=== PATIENT | female | born 1980 | race Two or more races ===

== ENCOUNTER 2017-04-06 19:48 | Emergency (ER) | payer MEDICARE, MEDICAID ==
[~2017-04-06] VITALS: Ht 152.4 cm; Wt 59.0 kg
[2017-04-06 20:25] VITALS: BP 150/99
== END 2017-04-07 00:22 | disposition left against medical advice (07) ==
LOC: ER 20:30
DX: J02.9 Acute pharyngitis, unspecified (principal); Z53.21 Procedure and treatment not carried out due to patient leaving prior to being seen by health care provider

== ENCOUNTER 2017-05-29 23:03 | Emergency (ER) | payer MEDICARE, MEDICAID ==
[~2017-05-29] VITALS: Ht 154.9 cm; Wt 54.4 kg
[2017-05-29] MEDS ORDERED: ALBUTEROL SULF 2.5 MG/0.5ML(0.5%) NEB SOLN NEB ONE (23:15)
[2017-05-29] MEDS ORDERED: IPRATROPIUM BROM 0.5 MG/2.5ML INH SOL NEB ONE (23:15)
[2017-05-29] MEDS ORDERED: ONDANSETRON ODT 4 MG TAB PO ONE (23:15)
[2017-05-29 23:46] LABS: Basophils # (auto) 0.4 uL; Basophils % (auto) 2.4 % (0.0-2.0); DEFINITIVE SEE PRINTOUT; Eosinophils # (auto) 0.2 uL; Eosinophils % (auto) 1.2 % (0.0-7.0); Lymphocytes # (auto) 0.6 uL; Lymphocytes % (auto) 3.9 % (10.0-50.0); Mean Corpuscular Hemoglobin 24.5 pg (28.0-32.0); Mean Corpuscular Hgb Conc. 31.6 g/dL (32.0-36.0); Mean Corpuscular Volume 77.4 fL (80.0-100.0); Mean Platelet Volume 7.9 fL (7.4-10.4); Monocytes # (auto) 0.1 uL; Monocytes % (auto) 0.6 % (0.0-12.0); Neutrophils % (auto) 91.9 % (37.0-80.0); Platelet Count (auto) 415 10^3/uL (140-450); Red Cell Distribution Width 16.7 % (11.6-16.0); SUSPECT SEE PRINTOUT; White Blood Cell 15.3 10^3/uL (4.4-10.8)
[2017-05-29 23:51] LABS: Albumin 3.8 g/dL (3.4-5.0); Anion Gap 17 (5-15); Aspartate Aminotransferase 64 U/L (15-37); BUN/Creatinine Ratio 12.1; Blood Urea Nitrogen 34 mg/dL (7-18); Calcium 8.8 mg/dL (8.5-10.1); Chloride 113 mmol/L (98-107); GFR African American 24 mL/min; GFR Non-African American 20 mL/min; Glucose 131 mg/dL (74-106); INR 1.12 (0.9-1.15); Partial Thromboplastin Time 40.5 sec (22.64-33.71); Prothrombin Time 12.2 sec (9.37-12.3); Sodium 138 mmol/L (136-145)
[2017-05-29 23:57] LABS: Alkaline Phosphatase 405 U/L (45-117); Bilirubin, Total 2.1 mg/dL (0.2-1.0); Total Protein 8.1 g/dL (6.4-8.2)
[2017-05-30 00:02] LABS: Carbon Dioxide 8 mmol/L (21-32)
[2017-05-30] MEDS ORDERED: ONDANSETRON HCL 4 MG/2 ML VIAL ONE (01:34)
[2017-05-30] MEDS ORDERED: MORPHINE SULFATE 4 MG/ML SYRG IV ONE ×2 (01:45→06:30)
[2017-05-30] MEDS ORDERED: ACETAMINOPHEN 325 MG TAB PO ONE (01:45)
[2017-05-30] MEDS ORDERED: ONDANSETRON HCL 4 MG/2 ML VIAL IV ONE (01:45)
[2017-05-30 02:26] LABS: Lactic Acid w/Reflex 4.2 mmol/L (0.4-2.0)
[2017-05-30 02:28] LABS: REFLEX LACTIC ACID YES OR NO YES
[2017-05-30 02:43] LABS: Urine RBC None Seen /hpf (0 - 4)
[2017-05-30 03:28] LABS: Urine Color Yellow (Yellow); Urine Glucose Normal (Normal); Urine Ketone Negative (Negative); Urine Nitrite Negative (Negative); Urine Urobilinogen Normal (Negative)
[2017-05-30 03:29] LABS: Urine Bilirubin Negative (Negative); Urine Blood 1+ /uL (Negative)
[2017-05-30] MEDS ORDERED: LEVOFLOXACIN 750MG 150 ML IV ONE (04:30)
[2017-05-30] MEDS ORDERED: SODIUM CHLORIDE 0.9% 2,000 ML IV ONE (04:30)
[2017-05-30] MEDS ORDERED: cefTRIAXone 1GM/50ML D5W 50 ML IV ONE (04:30)
[2017-05-30] MEDS ORDERED: SODIUM CHLORIDE 0.9% 1,000 ML IV ONE (04:30)
[2017-05-30] MEDS ORDERED: MORPHINE SULFATE 4 MG/ML SYRG ONE (05:16)
[2017-05-30 06:23] VITALS: BP 122/66
== END 2017-05-30 06:10 | disposition home or self-care (01) ==
LOC: ER 23:03
DX: J18.9 Pneumonia, unspecified organism (principal); J90 Pleural effusion, not elsewhere classified; R10.9 Unspecified abdominal pain; J45.909 Unspecified asthma, uncomplicated; Z94.4 Liver transplant status
CPT/HCPCS: 36415; 71010; 80053; 81001; 83605; 84484; 85025; 85610; 85730; 87040; 93005; 94640; 96365; 96368; 96375; J0696; J1956; J2405; Q0162

== ENCOUNTER 2017-05-30 20:32 | Inpatient (IN) | payer MEDICARE, MEDICAID ==
[~2017-05-30] VITALS: Ht 152.4 cm; Wt 68.0 kg
[2017-05-30] MEDS ORDERED: SODIUM CHLORIDE 0.9% 2,000 ML IV ONE (21:15)
[2017-05-30] MEDS ORDERED: NOREPINEPHRINE BITARTRATE 250 ML IV SCH (22:18)
[2017-05-30] MEDS ORDERED: NOREPINEPHRINE BITARTRATE 250 ML IV ONE (22:19)
[2017-05-30 22:40] LABS: Base Excess -22.5 mmol/L (-2.0-2.0); Blood 02Sat 96.8 % (96-100); Blood COHb 0.3 % (0.5-1.5); Blood MetHb 0.3 % (0.0-1.5); HCO3 6.1 mmol/L (22-26.0); HHb 3.2 % (0.0-5.0); MODE NASAL CANNULA; O2Hb 96.2 % (94.0-97.0); PCO2 22.1 mmHg (35.0-45.0); PCO2(T) 20.7 mmHg (35.0-45.0); PO2 142.7 mmHg (80.0-100.0); PO2(T) 133.9 mmHg (80.0-100.0); Sample Type Arterial; pH 7.057 (7.350-7.450)
[2017-05-30] MEDS ORDERED: ETOMIDATE (2MG/ML) 20ML VIAL IV ONE ×2 (22:45→23:00)
[2017-05-30] MEDS ORDERED: SUCCINYLCHOLINE CHLORIDE 20 MG/ML 10ML VIAL IV ONE ×3 (22:45→23:00)
[2017-05-30] MEDS ORDERED: MIDAZOLAM DRIP 50 mg/50mL NS 50 ML IV ONE (22:46)
[2017-05-30] MEDS: MIDAZOLAM DRIP 50 mg/50mL NS 50 ML IV SCH (23:15)
[2017-05-30] MEDS ORDERED: DEXTROSE (50%) 50ML SYRG IV ONE (23:30)
[2017-05-30 23:45] LABS: INR 1.69 (0.9-1.15); Partial Thromboplastin Time 60.8 sec (22.64-33.71); Prothrombin Time 18.5 sec (9.37-12.3)
[2017-05-30 23:49] LABS: Lactic Acid w/Reflex 11.2 mmol/L (0.4-2.0)
[2017-05-30 23:50] LABS: DEFINITIVE SEE PRINTOUT; Hematocrit 27.2 % (36.0-46.0); Hemoglobin 8.8 g/dL (12.2-16.2); Mean Corpuscular Hemoglobin 25.8 pg (28.0-32.0); Mean Corpuscular Hgb Conc. 32.4 g/dL (32.0-36.0); Mean Corpuscular Volume 79.8 fL (80.0-100.0); Mean Platelet Volume 8.6 fL (7.4-10.4); Platelet Count (auto) 155 10^3/uL (140-450); Red Cell Distribution Width 17.1 % (11.6-16.0); SUSPECT SEE PRINTOUT
[2017-05-30 23:52] LABS: REFLEX LACTIC ACID YES OR NO YES
[2017-05-31] VITALS (7 sets, daily range): BP systolic 84–138; BP diastolic 37–85
[2017-05-31] LABS: Myelocytes % 0; Promyelocytes % 0; Reactive Lymphocytes 0
[2017-05-31 00:15] LABS: Metamyelocytes % 2; Platelet Estimate Adequate
[2017-05-31] MEDS: SODIUM CHLORIDE 0.9% 1,000 ML IV SCH ×4 (00:16→19:30)
[2017-05-31 00:36] LABS: BUN/Creatinine Ratio 7.9
[2017-05-31 00:37] LABS: Bilirubin, Total 1.2 mg/dL (0.2-1.0); Calcium 8.7 mg/dL (8.5-10.1); Total Protein 4.4 g/dL (6.4-8.2)
[2017-05-31 00:38] LABS: White Blood Cell 30.8 10^3/uL (4.4-10.8)
[2017-05-31 01:07] LABS: Base Excess -30.7 mmol/L (-2.0-2.0); Blood 02Sat 98.8 % (96-100); Blood COHb 0.3 % (0.5-1.5); Blood MetHb 0.6 % (0.0-1.5); HCO3 3.9 mmol/L (22-26.0); HHb 1.2 % (0.0-5.0); MODE VENT - A/C; O2Hb 97.9 % (94.0-97.0); PCO2 31.2 mmHg (35.0-45.0); PCO2(T) 31.2 mmHg (35.0-45.0); PO2 514.4 mmHg (80.0-100.0); PO2(T) 514.4 mmHg (80.0-100.0); Sample Type Arterial
[2017-05-31] MEDS ORDERED: DOPamine 1600MCG/ML 250 ML IV SCH (01:17)
[2017-05-31] MEDS ORDERED: cefTRIAXone 1GM/50ML D5W 50 ML IV ONE (01:45)
[2017-05-31] MEDS ORDERED: VANCOMYCIN 1GM/250ML D5W 250 ML IV ONE (01:45)
[2017-05-31 02:55] LABS: Urine Bilirubin Negative (Negative); Urine Color Yellow (Yellow); Urine Glucose Normal (Normal); Urine Hyaline Cast MOD /lpf (0 - 2); Urine Ketone Negative (Negative); Urine Mucus FEW (None Seen); Urine Nitrite Negative (Negative); Urine RBC 3 /hpf (0 - 4); Urine Squamous Epithelial Cell FEW /hpf (<5); Urine Urobilinogen Normal (Negative)
[2017-05-31 02:56] LABS: Urine Blood 3+ /uL (Negative)
[2017-05-31] MEDS ORDERED: SODIUM BICARBONATE 8.4% INJ 50ML SYRINGE ONE ×5 (02:58→23:21)
[2017-05-31] MEDS ORDERED: SODIUM BICARBONATE 8.4 % INJ 50ML VIAL IV ONE ×6 (03:00→23:30)
[2017-05-31] MEDS ORDERED: PHENYLEPHRINE INJ 20 MG in SODIUM CHL 0.9% 250 ML IV SCH ×2 (03:31→12:19)
[2017-05-31] MEDS ORDERED: PHENYLEPHRINE IV 250 ML IV ONE ×2 (03:42→05:53)
[2017-05-31] MEDS ORDERED: LACTULOSE 20Gm/30ML SOLN PO ONE (03:45)
[2017-05-31 07:34] LABS: Base Excess -26.7 mmol/L (-2.0-2.0); Blood 02Sat 56.4 % (96-100); Blood COHb 0.1 % (0.5-1.5); Blood MetHb 0.3 % (0.0-1.5); HCO3 6.3 mmol/L (22-26.0); HHb 43.4 % (0.0-5.0); IE RATIO 1.1.2; MODE VENT - A/C; O2Hb 56.2 % (94.0-97.0); PCO2 39.8 mmHg (35.0-45.0); PCO2(T) 39.8 mmHg (35.0-45.0); PIP 28; PO2 41.6 mmHg (80.0-100.0); PO2(T) 41.6 mmHg (80.0-100.0); Sample Type Arterial; Spont Vt 521; pH 6.819 (7.350-7.450)
[2017-05-31] MEDS ORDERED: SODIUM BICARBONATE 50ML VIAL 50 ML in D5W 5% 1,000 ML IV ONE (07:45)
[2017-05-31] MEDS ORDERED: DEXTROSE (50%) 50ML SYRG IV ONE (08:00)
[2017-05-31] MEDS ORDERED: AZITHROMYCIN 500MG/D5W 250ML 250 ML IV ONE (09:00)
[2017-05-31] MEDS: MEROPENEM 500MG IVPB 100 ML IV SCH ×2 (09:00→20:47)
[2017-05-31] MEDS ORDERED: MORPHINE SULFATE 4 MG/ML SYRG IV PRN ×2 (09:00)
[2017-05-31] MEDS ORDERED: NITROGLYCERIN 0.4 MG SL TAB SL PRN (09:00)
[2017-05-31] MEDS ORDERED: SODIUM CHLORIDE 0.9% 1,000 ML IV ONE (09:00)
[2017-05-31] MEDS ORDERED: PIPERACILLIN-TAZOB 2.25GM 50 ML IV ONE (09:00)
[2017-05-31] MEDS ORDERED: LORazepam 2MG/ML-1ML VIAL IV PRN (09:00)
[2017-05-31] MEDS ORDERED: SODIUM BICARBONATE 50ML VIAL 50 ML in SOD CHL 0.45% 1,000 ML IV SCH (09:00)
[2017-05-31] MEDS ORDERED: PROMETHAZINE HCL 25 MG/ML 1ML IV PRN (09:00)
[2017-05-31] MEDS ORDERED: PANTOPRAZOLE SODIUM 40 MG/10 ML VIAL IV ONE (09:00)
[2017-05-31] MEDS ORDERED: DEXTROSE (50%) 50ML SYRG IV PRN (09:00)
[2017-05-31] MEDS ORDERED: ALBUTEROL SULF 2.5 MG/0.5ML(0.5%) NEB SOLN NEB PRN (09:00)
[2017-05-31] MEDS ORDERED: ENOXAPARIN SOD 40 MG/0.4 ML SYRINGE SC SCH (10:00)
[2017-05-31] MEDS ORDERED: ENOXAPARIN SOD 30 MG/0.3 ML SYRINGE SC SCH (10:00)
[2017-05-31] MEDS ORDERED: AZITHROMYCIN 500MG/D5W 250ML 250 ML IV SCH (10:00)
[2017-05-31] MEDS ORDERED: PANTOPRAZOLE SODIUM 40 MG/10 ML VIAL IV SCH (10:00)
[2017-05-31] MEDS ORDERED: methylPREDNISolone SOD SUCC 125 MG/2 ML VL ONE (10:05)
[2017-05-31 10:12] LABS: Amylase 391 U/L (25-115)
[2017-05-31 10:14] LABS: Lactic Acid w/Reflex 13.4 mmol/L (0.4-2.0)
[2017-05-31 10:38] LABS: Albumin 2.2 g/dL (3.4-5.0); BUN/Creatinine Ratio 8.4; Bilirubin, Total 1.4 mg/dL (0.2-1.0); Calcium 6.4 mg/dL (8.5-10.1); Magnesium 1.6 mg/dL (1.6-2.6); Potassium 4.5 mmol/L (3.5-5.1); Total Protein 4.1 g/dL (6.4-8.2)
[2017-05-31 10:39] LABS: REFLEX LACTIC ACID YES OR NO YES
[2017-05-31] MEDS ORDERED: ENOXAPARIN SOD 40 MG/0.4 ML SYRINGE SC ONE (10:45)
[2017-05-31] MEDS: EPINEPHrine HCL 250 ML IV SCH (11:00)
[2017-05-31] MEDS: ENOXAPARIN SOD 30 MG/0.3 ML SYRINGE SC SCH (11:00)
[2017-05-31 11:09] LABS: CONDITION Y; DEFINITIVE SEE PRINTOUT; Hematocrit 26.8 % (36.0-46.0); Hemoglobin 8.6 g/dL (12.2-16.2); Mean Corpuscular Hgb Conc. 31.9 g/dL (32.0-36.0); Mean Corpuscular Volume 81.3 fL (80.0-100.0); Mean Platelet Volume 8.1 fL (7.4-10.4); Platelet Count (auto) 286 10^3/uL (140-450); Red Cell Distribution Width 18.9 % (11.6-16.0); SUSPECT SEE PRINTOUT; White Blood Cell 27.4 10^3/uL (4.4-10.8)
[2017-05-31 11:25] LABS: Promyelocytes % 0; Reactive Lymphocytes 0
[2017-05-31] MEDS ORDERED: SODIUM BICARBONATE 50ML VIAL 50 ML in D5W 5% 1,000 ML IV SCH (11:30)
[2017-05-31] MEDS: ALBUTEROL SULF 2.5 MG/0.5ML(0.5%) NEB SOLN NEB SCH ×2 (11:42→18:11)
[2017-05-31] MEDS: IPRATROPIUM BROM 0.5 MG/2.5ML INH SOL NEB SCH ×3 (11:42→20:46)
[2017-05-31] MEDS ORDERED: PIPERACILLIN-TAZOB 2.25GM 50 ML IV SCH (12:00)
[2017-05-31 12:04] LABS: Metamyelocytes % 4; Myelocytes % 1
[2017-05-31 12:05] LABS: Burr Cells FEW; Platelet Estimate Adequate
[2017-05-31 12:06] LABS: Ovalocytes FEW
[2017-05-31] MEDS ORDERED: NOREPINEPHRINE BITARTRATE 250 ML IV SCH (12:25)
[2017-05-31] MEDS ORDERED: PHENYLEPHRINE HCL 10 MG/ML VL ONE (12:30)
[2017-05-31 12:42] LABS: Hematocrit 27.4 % (36.0-46.0); Hemoglobin 8.8 g/dL (12.2-16.2)
[2017-05-31] MEDS: AZITHROMYCIN 500MG/D5W 250ML 250 ML IV SCH (12:45)
[2017-05-31] MEDS: methylPREDNISolone SOD SUCC 40 MG/ML VL IV SCH ×2 (12:46→19:30)
[2017-05-31] MEDS: PHENYLEPHRINE INJ 40 MG in SODIUM CHL 0.9% 250 ML IV SCH (13:00)
[2017-05-31] MEDS ORDERED: VASOPRESSIN 50 UNITS in SODIUM CHL 0.9% 247.5 ML IV SCH (14:00)
[2017-05-31] MEDS: LACTULOSE 20Gm/30ML SOLN NG SCH ×3 (14:00→22:00)
[2017-05-31] MEDS: NOREPINEPHRINE BITARTRATE 16 MG in D5W 5% 250 ML IV SCH (14:00)
[2017-05-31] MEDS: VASOPRESSIN 50 UNITS in SODIUM CHL 0.9% 247.5 ML IV SCH (14:00)
[2017-05-31] MEDS: LINEZOLID 600MG/300ML 300 ML IV SCH ×2 (14:00→22:20)
[2017-05-31] MEDS ORDERED: cefTRIAXone 1GM/50ML D5W 50 ML IV SCH (14:00)
[2017-05-31] MEDS ORDERED: NOREPINEPHRINE BITARTRATE 4 ML IV ONE (14:03)
[2017-05-31] MEDS ORDERED: AMIODARONE HCL (50 MG/ ML) 3 ML VIAL IV ONE (14:35)
[2017-05-31] MEDS ORDERED: AMIODARONE HCL 150 MG in D5W 5% 100 ML IV ONE (14:45)
[2017-05-31] MEDS ORDERED: AMIODARONE HCL 900 MG in DEXTROSE 500 ML IV SCH ×2 (15:00→21:00)
[2017-05-31 18:15] LABS: Hematocrit 24.7 % (36.0-46.0); Hemoglobin 7.6 g/dL (12.2-16.2)
[2017-05-31] MEDS ORDERED: SODIUM BICARBONATE 50ML VIAL 150 ML in D5W 5% 1,000 ML IV SCH (18:45)
[2017-05-31 19:07] LABS: Blood 02Sat 97.1 % (96-100); Blood COHb 0.1 % (0.5-1.5); Blood MetHb 0.5 % (0.0-1.5); HHb 2.9 % (0.0-5.0); MODE VENT - A/C; O2Hb 96.5 % (94.0-97.0); PCO2 25.9 mmHg (35.0-45.0); PCO2(T) 25.3 mmHg (35.0-45.0); PO2 175.5 mmHg (80.0-100.0); PO2(T) 172.8 mmHg (80.0-100.0); Room 1014-ERT; Sample Type Arterial; pH < 6.697 (7.350-7.450)
[2017-05-31 20:44] LABS: REFLEX LACTIC ACID YES OR NO NO
[2017-05-31 22:15] LABS: Albumin 1.6 g/dL (3.4-5.0); BUN/Creatinine Ratio 7.4; Bilirubin, Total 1.8 mg/dL (0.2-1.0); Potassium 5.5 mmol/L (3.5-5.1); Total Protein 3.8 g/dL (6.4-8.2)
[2017-05-31 22:42] LABS: Calcium 5.6 mg/dL (8.5-10.1)
[2017-05-31] MEDS: MIDAZOLAM DRIP 50 mg/50mL NS 50 ML IV SCH (23:00)
[2017-05-31] MEDS ORDERED: CALCIUM GLUC 4.65 MEQ/10ML 4.65 MEQ in SODIUM CHL 0.9% 50 ML IV ONE (23:15)
[2017-05-31] MEDS ORDERED: CALCIUM GLUC 4.65 MEQ/10ML IV ONE (23:22)
[2017-05-31 23:30] LABS: Base Excess -23.9 mmol/L (-2.0-2.0); Blood 02Sat 97.4 % (96-100); Blood COHb 0.3 % (0.5-1.5); Blood MetHb 0.5 % (0.0-1.5); HCO3 6.5 mmol/L (22-26.0); HHb 2.6 % (0.0-5.0); MODE VENT - A/C; O2Hb 96.6 % (94.0-97.0); PO2 167.9 mmHg (80.0-100.0); PO2(T) 167.9 mmHg (80.0-100.0); Room 1014-ERT; Sample Type Arterial; pH 6.955 (7.350-7.450)
[2017-06-01] VITALS (14 sets, daily range): BP systolic 68–142; BP diastolic 32–106
[2017-06-01] MEDS ORDERED: CALCIUM GLUC 4.65 MEQ/10ML IV ONE ×2 (00:06→12:26)
[2017-06-01] MEDS: methylPREDNISolone SOD SUCC 40 MG/ML VL IV SCH ×4 (00:10→18:00)
[2017-06-01] MEDS: IPRATROPIUM BROM 0.5 MG/2.5ML INH SOL NEB SCH ×4 (00:23→18:56)
[2017-06-01] MEDS: ALBUTEROL SULF 2.5 MG/0.5ML(0.5%) NEB SOLN NEB SCH ×4 (00:23→18:56)
[2017-06-01] MEDS ORDERED: DEXTROSE (50%) 50ML SYRG IV PRN ×2 (00:45→11:45)
[2017-06-01] MEDS ORDERED: VASOPRESSIN 20 UNIT/ML ONE ×2 (00:53→01:02)
[2017-06-01] MEDS: LACTULOSE 20Gm/30ML SOLN NG SCH ×6 (02:00→22:00)
[2017-06-01] MEDS ORDERED: VANCOMYCIN 1GM/250ML D5W 250 ML IV SCH (02:00)
[2017-06-01] MEDS: PHENYLEPHRINE INJ 40 MG in SODIUM CHL 0.9% 250 ML IV SCH ×2 (03:20→18:22)
[2017-06-01] MEDS ORDERED: ACCU-CHEK COMFORT CURVE STRIP VI SCH ×2 (06:00→10:00)
[2017-06-01] MEDS ORDERED: InsuLIN REG 1unit/0.01ml Soln (100units/ml) SC SCH ×2 (06:00→08:00)
[2017-06-01 06:34] LABS: CONDITION Y; DEFINITIVE SEE PRINTOUT; Hematocrit 29.5 % (36.0-46.0); Hemoglobin 9.7 g/dL (12.2-16.2); Mean Corpuscular Hemoglobin 26.2 pg (28.0-32.0); Mean Corpuscular Hgb Conc. 32.9 g/dL (32.0-36.0); Mean Corpuscular Volume 79.6 fL (80.0-100.0); Mean Platelet Volume 8.7 fL (7.4-10.4); Platelet Count (auto) 178 10^3/uL (140-450); Red Cell Distribution Width 18.6 % (11.6-16.0); SUSPECT SEE PRINTOUT
[2017-06-01 06:56] LABS: White Blood Cell 44.9 10^3/uL (4.4-10.8)
[2017-06-01 06:57] LABS: Promyelocytes % 0; Reactive Lymphocytes 0
[2017-06-01 07:08] LABS: Albumin 1.6 g/dL (3.4-5.0); BUN/Creatinine Ratio 8.2; Bilirubin, Total 1.7 mg/dL (0.2-1.0); Potassium 4.7 mmol/L (3.5-5.1); Total Protein 3.8 g/dL (6.4-8.2)
[2017-06-01 07:13] LABS: Calcium 5.1 mg/dL (8.5-10.1)
[2017-06-01 08:05] LABS: Metamyelocytes % 8; Myelocytes % 2
[2017-06-01 08:06] LABS: Anisocytosis Slight; Burr Cells FEW; Ovalocytes FEW; Platelet Estimate Adequate
[2017-06-01] MEDS: MEROPENEM 500MG IVPB 100 ML IV SCH ×2 (09:19→20:00)
[2017-06-01] MEDS: PANTOPRAZOLE SODIUM 40 MG/10 ML VIAL IV SCH (10:00)
[2017-06-01] MEDS: AZITHROMYCIN 500MG/D5W 250ML 250 ML IV SCH (10:00)
[2017-06-01] MEDS ORDERED: AZITHROMYCIN 500MG/D5W 250ML 250 ML IV SCH (10:00)
[2017-06-01] MEDS ORDERED: ENOXAPARIN SOD 40 MG/0.4 ML SYRINGE SC SCH (10:00)
[2017-06-01] MEDS: ENOXAPARIN SOD 30 MG/0.3 ML SYRINGE SC SCH (10:00)
[2017-06-01 10:40] LABS: Base Excess -16.9 mmol/L (-2.0-2.0); Blood 02Sat 93.6 % (96-100); Blood COHb 0.3 % (0.5-1.5); Blood MetHb 0.3 % (0.0-1.5); HCO3 9.5 mmol/L (22-26.0); HHb 6.4 % (0.0-5.0); MODE VENT - A/C; PCO2 24.8 mmHg (35.0-45.0); PCO2(T) 24.8 mmHg (35.0-45.0); PO2 88.4 mmHg (80.0-100.0); PO2(T) 88.4 mmHg (80.0-100.0); Room 1014-ERT; Sample Type Arterial; pH 7.202 (7.350-7.450)
[2017-06-01] MEDS: EPINEPHrine HCL 250 ML IV SCH (11:25)
[2017-06-01] MEDS: LINEZOLID 600MG/300ML 300 ML IV SCH ×2 (11:29→22:00)
[2017-06-01] MEDS: SODIUM CHLORIDE 0.9% 1,000 ML IV SCH ×3 (11:55→17:41)
[2017-06-01] MEDS ORDERED: ALBUMIN 25% 100 ML IV ONE (11:56)
[2017-06-01] MEDS ORDERED: InsuLIN R (HUMAN) 100 UNITS in SODIUM CHL 0.9% 99 ML IV SCH (12:00)
[2017-06-01] MEDS ORDERED: CALCIUM GLUC 4.65 MEQ/10ML 4.65 MEQ in SODIUM CHL 0.9% 50 ML IV ONE ×5 (12:00→23:45)
[2017-06-01] MEDS: ALBUMIN 25% 50 ML IV SCH ×2 (12:00→20:00)
[2017-06-01] MEDS: ACCU-CHEK COMFORT CURVE STRIP VI SCH ×12 (12:00→23:00)
[2017-06-01 12:14] LABS: CONDITION Y; DEFINITIVE SEE PRINTOUT; Hematocrit 28.2 % (36.0-46.0); Hemoglobin 9.3 g/dL (12.2-16.2); Mean Corpuscular Hemoglobin 26.1 pg (28.0-32.0); Mean Corpuscular Hgb Conc. 32.8 g/dL (32.0-36.0); Mean Corpuscular Volume 79.6 fL (80.0-100.0); Mean Platelet Volume 8.9 fL (7.4-10.4); Platelet Count (auto) 147 10^3/uL (140-450); SUSPECT SEE PRINTOUT; White Blood Cell 28.8 10^3/uL (4.4-10.8)
[2017-06-01 12:15] LABS: Anion Gap 29 (5-15); BUN/Creatinine Ratio 8.4; Blood Urea Nitrogen 39 mg/dL (7-18); Carbon Dioxide 12 mmol/L (21-32); Chloride 92 mmol/L (98-107); GFR African American 14 mL/min; GFR Non-African American 11 mL/min; Magnesium 1.5 mg/dL (1.6-2.6); Phosphorus 8.6 mg/dL (2.5-4.90); Sodium 133 mmol/L (136-145)
[2017-06-01 12:21] LABS: Potassium 4.1 mmol/L (3.5-5.1)
[2017-06-01 12:25] LABS: Calcium < 5.0 mg/dL (8.5-10.1); Glucose 647 mg/dL (74-106)
[2017-06-01 12:42] LABS: Myelocytes % 0; Promyelocytes % 0; Reactive Lymphocytes 0
[2017-06-01] MEDS: NOREPINEPHRINE BITARTRATE 16 MG in D5W 5% 250 ML IV SCH (13:03)
[2017-06-01] MEDS: VASOPRESSIN 50 UNITS in SODIUM CHL 0.9% 247.5 ML IV SCH (14:00)
[2017-06-01 15:13] LABS: Metamyelocytes % 5
[2017-06-01 15:15] LABS: Anisocytosis Slight; Platelet Estimate Adequate
[2017-06-01 15:16] LABS: Burr Cells FEW; Ovalocytes FEW
[2017-06-01] MEDS ORDERED: SODIUM CHLORIDE 0.9% 1,000 ML IV SCH ×2 (15:34)
[2017-06-01] MEDS: SODIUM BICARBONATE 50ML VIAL 150 ML in D5W 5% 1,000 ML IV SCH (18:54)
[2017-06-01 21:29] LABS: Potassium 3.2 mmol/L (3.5-5.1)
[2017-06-01 21:41] LABS: Lactic Acid w/Reflex 17.7 mmol/L (0.4-2.0)
[2017-06-01 21:46] LABS: REFLEX LACTIC ACID YES OR NO NO
[2017-06-01 21:58] LABS: Anion Gap 29 (5-15); Carbon Dioxide 12 mmol/L (21-32); Chloride 90 mmol/L (98-107); Sodium 131 mmol/L (136-145)
[2017-06-01 21:59] LABS: BUN/Creatinine Ratio 8.7; Blood Urea Nitrogen 36 mg/dL (7-18); GFR African American 16 mL/min; GFR Non-African American 13 mL/min
[2017-06-01 22:27] LABS: Calcium < 5.0 mg/dL (8.5-10.1); Glucose 570 mg/dL (74-106)
[2017-06-01] MEDS: MIDAZOLAM DRIP 50 mg/50mL NS 50 ML IV SCH (22:51)
[2017-06-01] MEDS: MAGNESIUM SULFATE 1GM/100ML 100 ML IV SCH (23:00)
[2017-06-02] MEDS ORDERED: CALCIUM GLUC 4.65 MEQ/10ML 20 ML IV ONE (00:11)
[2017-06-02] MEDS: SODIUM CHLORIDE 0.9% 1,000 ML IV SCH ×2 (00:14→07:00)
[2017-06-02 00:29] VITALS: BP 138/95
[2017-06-02] MEDS: SODIUM BICARBONATE 50ML VIAL 150 ML in D5W 5% 1,000 ML IV SCH ×2 (00:30→07:19)
[2017-06-02] MEDS: MAGNESIUM SULFATE 1GM/100ML 100 ML IV SCH ×2 (01:00)
[2017-06-02] MEDS: ACCU-CHEK COMFORT CURVE STRIP VI SCH ×12 (01:00→10:36)
[2017-06-02 01:46] LABS: Lactic Acid w/Reflex 19.1 mmol/L (0.4-2.0)
[2017-06-02 01:54] LABS: REFLEX LACTIC ACID YES OR NO YES
[2017-06-02] MEDS: LACTULOSE 20Gm/30ML SOLN NG SCH ×2 (02:00→06:00)
[2017-06-02] MEDS ORDERED: PHENYLEPHRINE IV 250 ML IV ONE ×2 (02:05→05:15)
[2017-06-02 02:06] VITALS: BP 101/42
[2017-06-02] MEDS ORDERED: InsuLIN R (HUMAN) 100 UNITS in SODIUM CHL 0.9% 99 ML IV SCH (02:14)
[2017-06-02 02:18] LABS: Base Excess -15.3 mmol/L (-2.0-2.0); Blood 02Sat 90.7 % (96-100); Blood COHb 0.4 % (0.5-1.5); HCO3 10.4 mmol/L (22-26.0); HHb 9.2 % (0.0-5.0); MODE VENT - A/C; O2Hb 89.4 % (94.0-97.0); PCO2 24.3 mmHg (35.0-45.0); PCO2(T) 24.3 mmHg (35.0-45.0); PO2 74.5 mmHg (80.0-100.0); PO2(T) 74.5 mmHg (80.0-100.0); Room 1014-ERT; Sample Type Arterial
[2017-06-02] MEDS ORDERED: InsuLIN REG 1unit/0.01ml Soln (100units/ml) ONE (02:20)
[2017-06-02] MEDS: ALBUMIN 25% 50 ML IV SCH (04:00)
[2017-06-02 04:20] VITALS: BP 132/96
[2017-06-02 05:42] LABS: CONDITION Y; DEFINITIVE SEE PRINTOUT; Hematocrit 24.4 % (36.0-46.0); Hemoglobin 8.2 g/dL (12.2-16.2); Mean Corpuscular Hemoglobin 26.7 pg (28.0-32.0); Mean Corpuscular Hgb Conc. 33.5 g/dL (32.0-36.0); Mean Corpuscular Volume 79.6 fL (80.0-100.0); Platelet Count (auto) 83 10^3/uL (140-450); Red Cell Distribution Width 18.9 % (11.6-16.0); SUSPECT SEE PRINTOUT
[2017-06-02 05:52] LABS: White Blood Cell 32.4 10^3/uL (4.4-10.8)
[2017-06-02 05:53] LABS: Promyelocytes % 0; Reactive Lymphocytes 0
[2017-06-02 05:55] LABS: INR 2.29 (0.9-1.15)
[2017-06-02] MEDS: methylPREDNISolone SOD SUCC 40 MG/ML VL IV SCH ×2 (06:00)
[2017-06-02 06:07] LABS: Prothrombin Time 25.2 sec (9.37-12.3)
[2017-06-02 06:08] LABS: Albumin 1.9 g/dL (3.4-5.0); Anion Gap 29 (5-15); BUN/Creatinine Ratio 8.2; Blood Urea Nitrogen 32 mg/dL (7-18); Carbon Dioxide 13 mmol/L (21-32); Chloride 89 mmol/L (98-107); GFR African American 17 mL/min; GFR Non-African American 14 mL/min; Sodium 131 mmol/L (136-145)
[2017-06-02 06:15] LABS: Alkaline Phosphatase 796 U/L (45-117); Total Protein 3.9 g/dL (6.4-8.2)
[2017-06-02 06:24] LABS: Magnesium 1.8 mg/dL (1.6-2.6)
[2017-06-02 06:25] LABS: Lactic Acid w/Reflex 18.4 mmol/L (0.4-2.0)
[2017-06-02 06:29] LABS: Calcium < 5.0 mg/dL (8.5-10.1); Glucose 440 mg/dL (74-106); Potassium 2.5 mmol/L (3.5-5.1)
[2017-06-02 06:31] LABS: REFLEX LACTIC ACID YES OR NO NO
[2017-06-02 06:52] LABS: Metamyelocytes % 7; Myelocytes % 4
[2017-06-02 06:53] LABS: Burr Cells FEW; Platelet Estimate Decreased
[2017-06-02 06:54] LABS: Ovalocytes FEW
[2017-06-02 07:14] VITALS: BP 132/54
[2017-06-02] MEDS: IPRATROPIUM BROM 0.5 MG/2.5ML INH SOL NEB SCH ×2 (07:14)
[2017-06-02] MEDS: ALBUTEROL SULF 2.5 MG/0.5ML(0.5%) NEB SOLN NEB SCH ×2 (07:14)
[2017-06-02] MEDS ORDERED: CALCIUM GLUC 4.65 MEQ/10ML 4.65 MEQ in SODIUM CHL 0.9% 50 ML IV ONE ×4 (07:15)
[2017-06-02 07:33] LABS: Aspartate Aminotransferase 11537 U/L (15-37)
[2017-06-02] MEDS: POTASSIUM CHL 20MEQ/100ML 100 ML IV SCH ×2 (07:45→10:05)
[2017-06-02] MEDS: MEROPENEM 500MG IVPB 100 ML IV SCH (08:37)
[2017-06-02 08:45] VITALS: BP 89/52
[2017-06-02 09:11] LABS: Base Excess -16.3 mmol/L (-2.0-2.0); Blood 02Sat 92.1 % (96-100); Blood COHb 0.4 % (0.5-1.5); Blood MetHb 0.9 % (0.0-1.5); HCO3 9.4 mmol/L (22-26.0); HHb 7.8 % (0.0-5.0); MODE VENT - A/C; O2Hb 90.9 % (94.0-97.0); PCO2 22.2 mmHg (35.0-45.0); PCO2(T) 22.2 mmHg (35.0-45.0); PO2 82.3 mmHg (80.0-100.0); PO2(T) 82.3 mmHg (80.0-100.0); Room 1014-ERT; Sample Type Arterial; pH 7.244 (7.350-7.450)
[2017-06-02] MEDS: ENOXAPARIN SOD 30 MG/0.3 ML SYRINGE SC SCH (10:00)
[2017-06-02] MEDS: AZITHROMYCIN 500MG/D5W 250ML 250 ML IV SCH (10:35)
[2017-06-02] MEDS: PANTOPRAZOLE SODIUM 40 MG/10 ML VIAL IV SCH (10:35)
[2017-06-02] MEDS: LINEZOLID 600MG/300ML 300 ML IV SCH (10:35)
[2017-06-02 10:50] VITALS: BP 246/21
[2017-06-02] MEDS ORDERED: SODIUM BICARBONATE 8.4% INJ 50ML SYRINGE ONE (10:54)
[2017-06-02] MEDS ORDERED: EPINEPHrine HCL 1 MG/10 ML SYRG IV ONE (12:32)
[2017-06-02] MEDS ORDERED: SODIUM BICARBONATE 8.4% INJ 50ML SYRINGE IV ONE (12:32)
== END 2017-06-02 11:07 | disposition expired | DRG 871 ==
LOC: EDBD 20:32 → ER 20:39 → TELE 20:40
PROVIDERS: ADMIT Internal Medicine; ATTEND Internal Medicine
PROC: 0BH17EZ Insertion of Endotracheal Airway into Trachea, Via Natural or Artificial Opening (ICD-10-PCS; 2017-05-30)
PROC: 5A1945Z Respiratory Ventilation, 24-96 Consecutive Hours (ICD-10-PCS; 2017-05-30)
PROC: 02HV33Z Insertion of Infusion Device into Superior Vena Cava, Percutaneous Approach (ICD-10-PCS; 2017-05-30)
PROC: 5A12012 Performance of Cardiac Output, Single, Manual (ICD-10-PCS; 2017-05-31)
PROC: 30233N1 Transfusion of Nonautologous Red Blood Cells into Peripheral Vein, Percutaneous Approach (ICD-10-PCS; 2017-05-31)
PROC: 5A12012 Performance of Cardiac Output, Single, Manual (ICD-10-PCS; principal; 2017-06-02)
DX: A41.9 Sepsis, unspecified organism (principal); R65.21 Severe sepsis with septic shock; J96.00 Acute respiratory failure, unspecified whether with hypoxia or hypercapnia; G93.41 Metabolic encephalopathy; J18.9 Pneumonia, unspecified organism; N39.0 Urinary tract infection, site not specified; N17.9 Acute kidney failure, unspecified; D68.59 Other primary thrombophilia; J44.0 Chronic obstructive pulmonary disease with (acute) lower respiratory infection; Z94.4 Liver transplant status; D63.8 Anemia in other chronic diseases classified elsewhere; I46.9 Cardiac arrest, cause unspecified; K72.90 Hepatic failure, unspecified without coma; F41.9 Anxiety disorder, unspecified; N18.9 Chronic kidney disease, unspecified; J32.4 Chronic pansinusitis; Z82.49 Family history of ischemic heart disease and other diseases of the circulatory system; Z89.111 Acquired absence of right hand; Z88.8 Allergy status to other drugs, medicaments and biological substances
CPT/HCPCS: 31500; 36415; 36556; 36600; 70450; 71010; 76775; 80048; 80053; 80307; 81001; 81025; 82010; 82140; 82150; 82550; 82805; 82962; 83036; 83605; 83690; 83735; 83930; 84100; 84484; 85007; 85014; 85018; 85025; 85027; 85045; 85379; 85610; 85730; 86850; 86900; 86901; 86920; 87040; 87070; 87077; 87081; 87086; 87186; 87205; 92950; 93005; 93970; 94002; 94003; 94640; 96361; 96365; 96367; 96368; 96375; C9113; J0171; J0330; J0696; J1815; J1956; J2185; J2250; J2405; J3480; J3490; J7060; Q0162